=== PATIENT | female | born 1975 | race African-American/Black ===

== ENCOUNTER 2019-03-06 15:54 | Emergency (ER) | payer SELFPAY ==
[~2019-03-06] VITALS: Ht 170.2 cm; Wt 55.0 kg
[2019-03-06 17:37] LABS: BASOPHILS % 1.1 % (0.0-2.0); EOSINOPHILS % 1.2 % (0.0-5.0); LYMPHOCYTES % 25.3 % (20.0-50.0); MEAN CORPUSCULAR HEMOGLOBIN 21.3 pg (28.0-32.0); MEAN CORPUSCULAR VOLUME 72.6 fL (81.0-99.0); MEAN PLATELET VOLUME 7.7 fl (7.4-10.4); MONOCYTES % 6.8 % (2.0-8.0); NEUTROPHILS % 65.6 % (40.0-76.0); PLATELET 812 x1000/uL (130-400); RED BLOOD CELL COUNT 1.89 mill/uL (4.2-5.4); RED CELL DISTRIBUTION WIDTH 34.6 % (11.6-14.6)
[2019-03-06 17:39] LABS: CHLORIDE 112 mEq/L (98-107)
[2019-03-06 17:47] LABS: HEMATOCRIT. 13.7 % (36.0-48.0)
[2019-03-06 17:52] LABS: INR 1.1; PROTHROMBIN TIME 11.2 sec (9.6-11.0)
[2019-03-06 17:54] LABS: PLATELET ESTIMATE MARKEDLY INCREASED
[2019-03-06 18:15] VITALS: BP 123/52
[2019-03-10] MEDS ORDERED: FERR236T3 MT (10:12)
[2019-03-10] MEDS ORDERED: FOLI-43 MT (10:12)
== END 2019-03-06 18:45 | disposition left against medical advice (07) ==
LOC: ER 15:54
DX: D50.9 Iron deficiency anemia, unspecified (principal); R60.0 Localized edema; E87.6 Hypokalemia
CPT/HCPCS: 36415; 83880; 84484; 93005; 99284

== ENCOUNTER 2019-03-08 18:57 | Inpatient (IN) | payer SELFPAY ==
[~2019-03-08] VITALS: Ht 175.3 cm; Wt 49.5 kg
[2019-03-09] VITALS (13 sets, daily range): BP systolic 121–134; BP diastolic 61–78
[2019-03-09 00:50] LABS: MEAN CORPUSCULAR HEMOGLOBIN 20.8 pg (28.0-32.0); MEAN CORPUSCULAR VOLUME 72.2 fL (81.0-99.0); PLATELET 819 x1000/uL (130-400); RED BLOOD CELL COUNT 2.04 mill/uL (4.2-5.4); RED CELL DISTRIBUTION WIDTH 32.2 % (11.6-14.6)
[2019-03-09] MEDS ORDERED: KETOROLAC 30MG/ML VIAL IV ONE (01:00)
[2019-03-09 01:14] LABS: CHLORIDE 114 mEq/L (98-107)
[2019-03-09 01:16] LABS: HEMATOCRIT 14.7 % (36.0-48.0); HEMOGLOBIN 4.2 g/dL (12.0-16.0)
[2019-03-09] MEDS: POTASSIUM CHLORIDE 20MEQ TABLET SR PO NR ×2 (01:57→02:13)
[2019-03-09] MEDS ORDERED: IPRATROPIUM/ALBUTEROL 0.5-3(2.5)MG/3ML NEB INH PRN (09:45)
[2019-03-09] MEDS ORDERED: ONDANSETRON HCL 4MG/2ML INJ IV PRN (09:45)
[2019-03-09] MEDS ORDERED: GUAIFENESIN 200MG/10ML SUGAR FREE UDC PO PRN (09:45)
[2019-03-09] MEDS ORDERED: DIPHENHYDRAMINE 50MG/ML VIAL IV PRN (09:45)
[2019-03-09] MEDS ORDERED: ACETAMINOPHEN 650MG SUPP PR PRN (09:45)
[2019-03-09] MEDS ORDERED: NA PHOS,M-B/NA PHOS,DI-BA ENEMA 118ML PR PRN (09:45)
[2019-03-09] MEDS ORDERED: MAGNESIUM/ALUMINUM HYDROXIDE/SIMETHICONE 30ML UDC PO PRN (09:45)
[2019-03-09] MEDS ORDERED: ACETAMINOPHEN 650MG/20.3ML UDC GT PRN (09:45)
[2019-03-09] MEDS ORDERED: CLONIDINE 0.1MG TABLET PO PRN (09:45)
[2019-03-09] MEDS ORDERED: DOCUSATE SODIUM 100MG CAPSULE PO PRN (09:45)
[2019-03-09] MEDS: HYDROCODONE/ACETAMINOPHEN 5/325MG TABLET PO PRN ×3 (11:43→21:20)
[2019-03-09] MEDS ORDERED: HYDR-4009 MT (11:54)
[2019-03-09 12:05] LABS: HEMATOCRIT 22.1 % (36.0-48.0)
[2019-03-09 12:12] LABS: HEMOGLOBIN 6.8 g/dL (12.0-16.0)
[2019-03-09] MEDS ORDERED: ZOLPIDEM TARTRATE 5MG TABLET PO PRN (12:30)
[2019-03-09] MEDS ORDERED: FUROSEMIDE 40MG TABLET PO NR (12:30)
[2019-03-09] MEDS ORDERED: FUROSEMIDE 40MG/4ML VIAL IVP NR (13:45)
[2019-03-09 14:36] LABS: INR 1.1; PROTHROMBIN TIME 11.2 sec (9.6-11.0)
[2019-03-09 14:45] LABS: TOTAL IRON BINDING CAPACITY 294 ug/dL (250-450)
[2019-03-09 16:10] LABS: VITAMIN B12 SERUM 395 pg/mL (211-911)
[2019-03-09 16:59] LABS: CLARITY URINE CLEAR (CLEAR); COLOR URINE YELLOW (YELLOW); KETONES URINE NEGATIVE (NEGATIVE); LEUKOCYTE ESTERASE URINE NEGATIVE (NEGATIVE); NITRITE URINE NEGATIVE (NEGATIVE); OCCULT BLOOD URINE NEGATIVE (NEGATIVE); PH URINE 6.5 (4.5-8.0); PROTEIN URINE NEGATIVE (NEGATIVE); UROBILINOGEN URINE 0.2 E.U./dL (0.2-1.0)
[2019-03-09 17:10] LABS: *BARBITURATES SCREEN URINE NEGATIVE (NEGATIVE); *BENZODIAZEPINES SCREEN URINE NEGATIVE (NEGATIVE); *COCAINE SCREEN URINE NEGATIVE (NEGATIVE); METHADONE URINE SCREEN NEGATIVE (NEGATIVE)
[2019-03-09 17:11] LABS: OPIATES URINE SCREEN NEGATIVE (NEGATIVE); PHENCYCLIDINE URINE SCREEN NEGATIVE (NEGATIVE)
[2019-03-09 17:12] LABS: *AMPHETAMINES SCREEN URINE PRESUMTIVE POSITIVE (NEGATIVE); CANNABINOID URINE SCREEN PRESUMTIVE POSITIVE (NEGATIVE)
[2019-03-09 18:06] LABS: FERRITIN < 5 ng/mL (10-291)
[2019-03-09] MEDS: SODIUM CHLORIDE 0.9% INJ 3ML FLUSH IVF SCH ×2 (18:10→21:21)
[2019-03-09] MEDS: ACETAMINOPHEN 325MG TABLET PO PRN (18:10)
[2019-03-09 20:46] LABS: INR 1.1; PROTHROMBIN TIME 11.2 sec (9.6-11.0)
[2019-03-09 20:48] LABS: HEMATOCRIT 24.4 % (36.0-48.0); HEMOGLOBIN 7.9 g/dL (12.0-16.0)
[2019-03-09] MEDS: PANTOPRAZOLE SODIUM 40 MG/VIAL IV SCH (21:18)
[2019-03-09 23:45] LABS: HEMATOCRIT 25.6 % (36.0-48.0); HEMOGLOBIN 8.2 g/dL (12.0-16.0)
[2019-03-10] VITALS: BP 130/76
[2019-03-10] MEDS: HYDROCODONE/ACETAMINOPHEN 5/325MG TABLET PO PRN ×3 (01:48→10:30)
[2019-03-10 04:00] VITALS: BP 132/70
[2019-03-10] MEDS: SODIUM CHLORIDE 0.9% INJ 3ML FLUSH IVF SCH (06:14)
[2019-03-10] MEDS: ACETAMINOPHEN 325MG TABLET PO PRN (07:56)
[2019-03-10 08:39] VITALS: BP 128/66
[2019-03-10] MEDS: PANTOPRAZOLE SODIUM 40 MG/VIAL IV SCH (08:40)
[2019-03-10 09:45] LABS: BASOPHILS % 0.7 % (0.0-2.0); EOSINOPHILS % 2.8 % (0.0-5.0); HEMATOCRIT. 26.5 % (36.0-48.0); HEMOGLOBIN. 8.5 g/dL (12.0-16.0); LYMPHOCYTES % 14.9 % (20.0-50.0); MEAN CORPUSCULAR HEMOGLOBIN 24.7 pg (28.0-32.0); MEAN PLATELET VOLUME 7.5 fl (7.4-10.4); MONOCYTES % 7.9 % (2.0-8.0); NEUTROPHILS % 73.7 % (40.0-76.0); PLATELET 679 x1000/uL (130-400); RED BLOOD CELL COUNT 3.45 mill/uL (4.2-5.4); RED CELL DISTRIBUTION WIDTH 29.7 % (11.6-14.6)
[2019-03-10] MEDS ORDERED: FOLI-43 MT (10:12)
[2019-03-10] MEDS ORDERED: FERR236T3 MT (10:12)
[2019-03-10] MEDS ORDERED: FUROSEMIDE 40MG/4ML VIAL IVP SCH (10:30)
[2019-03-10 10:41] LABS: CHLORIDE 110 mEq/L (98-107)
[2019-03-10 10:51] LABS: LDL CHOLESTEROL 43 mg/dL (5-100)
[2019-03-10 10:53] LABS: HDL CHOLESTEROL 38 mg/dL (40-59)
[2019-03-10 11:13] VITALS: BP 128/66
[2019-03-10] MEDS ORDERED: FURO-151 PO (11:24)
[2019-03-10 12:50] VITALS: BP 119/55
== END 2019-03-10 14:20 | disposition home or self-care (01) | DRG 663 ==
LOC: ER 18:57 → 6WST 03-09 01:26 → ENRESERV 03-09 04:50
PROVIDERS: ADMIT Family Medicine; ATTEND Family Medicine
PROC: 30233N1 Transfusion of Nonautologous Red Blood Cells into Peripheral Vein, Percutaneous Approach (ICD-10-PCS; principal; 2019-03-09)
DX: D50.9 Iron deficiency anemia, unspecified (principal); E87.0 Hyperosmolality and hypernatremia; K21.9 Gastro-esophageal reflux disease without esophagitis; R60.0 Localized edema; F15.90 Other stimulant use, unspecified, uncomplicated; F12.90 Cannabis use, unspecified, uncomplicated; E87.6 Hypokalemia; K27.9 Peptic ulcer, site unspecified, unspecified as acute or chronic, without hemorrhage or perforation; Z90.49 Acquired absence of other specified parts of digestive tract
CPT/HCPCS: 36415; 80061; 80305; 82270; 82607; 82728; 82746; 83540; 83550; 85014; 85018; 85027; 85049; 85384; 86850; 86900; 86920; 93306; 96374; 96375; 99291; C9113; J1885; J1940; J7040; P9016

== ENCOUNTER 2019-03-22 05:56 | Emergency (ER) | payer MEDICAID ==
[~2019-03-22] VITALS: Ht 172.7 cm; Wt 50.0 kg
[~2019-03-22 05:56] MED LIST: FERR236T3 MT; FOLI-43 MT; FURO-151 PO; HYDR-4009 MT
[2019-03-22] MEDS ORDERED: SODIUM CHLORIDE 0.9% 1,000 ML IV ONE (07:00)
[2019-03-22 07:37] LABS: BASOPHILS % 0.8 % (0.0-2.0); HEMOGLOBIN. 7.3 g/dL (12.0-16.0); LYMPHOCYTES % 16.1 % (20.0-50.0); MEAN CORPUSCULAR HEMOGLOBIN 24.5 pg (28.0-32.0); MEAN CORPUSCULAR VOLUME 80.3 fL (81.0-99.0); MEAN PLATELET VOLUME 8.7 fl (7.4-10.4); MONOCYTES % 8.2 % (2.0-8.0); NEUTROPHILS % 71.9 % (40.0-76.0); PLATELET 126 x1000/uL (130-400); RED BLOOD CELL COUNT 2.99 mill/uL (4.2-5.4); RED CELL DISTRIBUTION WIDTH 30.2 % (11.6-14.6)
[2019-03-22 07:44] LABS: CHLORIDE 115 mEq/L (98-107)
[2019-03-22 08:03] LABS: PLATELET ESTIMATE SLIGHTLY DECREASED
[2019-03-22] MEDS ORDERED: POTASSIUM CHLORIDE 20MEQ TABLET SR PO ONE (08:15)
[2019-03-22] MEDS ORDERED: CEPHALEXIN 250MG CAPSULE PO ONE (08:15)
[2019-03-22 09:00] VITALS: BP 119/69
== END 2019-03-22 09:26 | disposition home or self-care (01) ==
LOC: ER 05:56
DX: L03.213 Periorbital cellulitis (principal); F17.200 Nicotine dependence, unspecified, uncomplicated; D64.9 Anemia, unspecified; Z98.890 Other specified postprocedural states; Z79.899 Other long term (current) drug therapy
CPT/HCPCS: 36415; 80048; 85025; 99283; 99406; J7030